=== PATIENT | male | born 1965 | race Caucasian/White ===

== ENCOUNTER 2023-08-20 18:02 | Inpatient (IN) | payer BC ==
[2023-08-20 18:48] LABS: HEMATOCRIT 50.2 % (35.4-49); HEMOGLOBIN 16.9 G/dL (11.7-16.9); MCH 30.7 pg (25.7-33.7); MCHC 33.7 g/dl (32.0-35.9); MEAN CELL VOLUME 90.9 fl (80-96); MEAN PLT VOLUME 7.5 fl (7.5-11.1); PLATELET COUNT 342.8 10^3/uL (134-434); RBC 5.52 10^6/uL (4.00-5.60); RDW 13.1 % (11.9-15.9); WHITE BLOOD COUNT 19.9 10^3/uL (4.0-10.8)
[2023-08-20 18:57] LABS: INR 1.26 (0.83-1.09); PROTHROMBIN TIME (PATIENT) 14.6 SEC (9.7-13.0)
[2023-08-20] MEDS: SODIUM CHLORIDE 0.9% 1000 ML INFUS.BAG IV ONE (19:01)
[2023-08-20] MEDS: ACETAMINOPHEN 1000 MG/100 ML BAG IVPB ONE (19:01)
[2023-08-20 19:06] LABS: ALBUMIN 4.4 g/dl (3.4-5.0); BILIRUBIN,TOTAL 0.7 mg/dl (0.2-1); CALCIUM 9.9 mg/dl (8.5-10.1); CREATININE 1.1 mg/dl (0.6-1.3); TOT PROT 7.2 g/dl (6.4-8.2)
[2023-08-20] MEDS ORDERED: PIPERACILLIN/TAZOBACTAM 4.5 GM VIAL IVPB ONE (19:15)
[2023-08-20] MEDS: PIPERACILLIN/TAZOB 4.5 GM 4.5 GM in DEXTROSE 5%-WATER 100 ML IVPB ONE (19:21)
[2023-08-20] MEDS: morphine CARPU-JECT 8 MG/1 ML DISP.SYRIN IVPUSH ONE (20:48)
[2023-08-20] MEDS ORDERED: morphine SULFATE 4 MG/ML VIAL ONE (20:49)
[2023-08-20] MEDS ORDERED: FAMOTIDINE 20 MG/50 ML IVPB 20 MG/50 ML MG IVPB ONE (22:03)
[2023-08-20] MEDS ORDERED: MAG HYDROX/AL HYDROX/SIMETH 30 ML UNIT-DOSE CUP ONE (22:03)
[2023-08-20] MEDS: MAG HYDROX/AL HYDROX/SIMETH 30 ML UNIT-DOSE CUP PO ONE (22:07)
[2023-08-20] MEDS: FAMOTIDINE 20 MG/50 ML IVPB 20 MG/50 ML MG IVPB ONE (22:07)
[2023-08-20] MEDS ORDERED: DOCUSATE SODIUM 100 MG CAPSULE (FP) PO PRN (23:42)
[2023-08-21] MEDS: morphine SULFATE 4 MG/ML VIAL IVPUSH PRN (00:58)
[2023-08-21] MEDS: DEXTROSE 5%-NORMAL SALINE 1,000 ML IV SCH (00:58)
[2023-08-21 01:21] VITALS: BMI 31.4
[2023-08-21] MEDS: PIPERACILLIN/TAZOB 3.375 GM 3.375 GM in DEXTROSE 5%-WATER - 50 ML IVPB SCH ×2 (02:23→15:26)
[2023-08-21] MEDS: ACETAMINOPHEN 1000 MG/100 ML BAG IVPB PRN (03:25)
[2023-08-21] MEDS: MELATONIN 5 MG TABLETS PO PRN (03:51)
[2023-08-21 08:10] LABS: CALCIUM 9.1 mg/dl (8.5-10.1); CREATININE 1.1 mg/dl (0.6-1.3); MAGNESIUM 2.2 mg/dL (1.8-2.4); PHOSPHOROUS 3.7 (2.5-4.9); POTASSIUM 4.3 mmol/L (3.5-5.1)
[2023-08-21 10:47] LABS: BASO % 0.2 % (0-2.0); EOS % 1.3 % (0-4.5); HEMATOCRIT 44.2 % (35.4-49); HEMOGLOBIN 14.9 GM/dL (11.7-16.9); LYMPH % 14.2 % (8-40); MCH 31.1 pg (25.7-33.7); MCHC 33.7 g/dl (32.0-35.9); MEAN CELL VOLUME 92.2 fl (80-96); MEAN PLT VOLUME 7.3 fl (7.5-11.1); MONO % 10.2 % (3.8-10.2); NEUT % 74.1 % (42.8-82.8); PLATELET COUNT 329 10^3/uL (134-434); RDW 12.8 % (11.9-15.9); WHITE BLOOD COUNT 14.9 K/mm3 (4.0-10.0)
[2023-08-21] MEDS ORDERED: ONDANSETRON 4 MG/2 ML VIAL IVPUSH PRN (13:05)
[2023-08-21] MEDS ORDERED: ACETAMINOPHEN 325 MG TABLET (FP) PO PRN ×2 (13:05→23:42)
[2023-08-21] MEDS ORDERED: FENTANYL CITRATE/PF 50 MCG/ML VIAL ONE ×3 (13:09→14:23)
[2023-08-21] MEDS ORDERED: MIDAZOLAM HCL 2 MG/2 ML SINGLE DOSE VIAL ONE (13:09)
[2023-08-21] MEDS ORDERED: PROPOFOL 20 ML ONE (13:19)
[2023-08-21] MEDS ORDERED: ACETAMINOPHEN INJECTION 100 ML IVPB ONE (14:13)
[2023-08-21] MEDS ORDERED: PIPERACILLIN/TAZOB 4.5 GM 4.5 GM in DEXTROSE 5%-WATER 100 ML IVPB SCH (20:00)
[2023-08-21] MEDS: PIPERACILLIN/TAZOB 4.5 GM 4.5 GM in DEXTROSE 5%-WATER 100 ML IVPB SCH (22:25)
[2023-08-22] MEDS ORDERED: ACETAMINOPHEN 325 MG TABLET (FP) PO PRN (01:00)
[2023-08-22] MEDS: oxyCODONE HCL 5 MG TABLET PO PRN (06:36)
[2023-08-22] MEDS ORDERED: oxyCODONE HCL 5 MG TABLET PO PRN ×2 (07:31→07:33)
[2023-08-22] MEDS ORDERED: IBUPROFEN 600 MG TABLET (FP) PO PRN (07:33)
[2023-08-22] MEDS: ACETAMINOPHEN 500 MG TABLET (FP) PO SCH (08:19)
[2023-08-22] MEDS: KETOROLAC TROMETHAMINE 30 MG/1 ML VIAL IVPUSH ONE (08:19)
[2023-08-22] MEDS: POLYETHYLENE GLYCOL (HEALTHYLAX) 3350 17 GM PACKET PO SCH (09:25)
[2023-08-22] MEDS: LACTATED RINGERS SOLUTION 1,000 ML IV SCH (09:27)
[2023-08-22 09:33] LABS: BASO % 0.2 % (0-2.0); EOS % 0.1 % (0-4.5); HEMATOCRIT 41.9 % (35.4-49); LYMPH % 13.8 % (8-40); MCH 30.6 pg (25.7-33.7); MCHC 33.4 g/dl (32.0-35.9); MEAN CELL VOLUME 91.6 fl (80-96); MEAN PLT VOLUME 7.6 fl (7.5-11.1); MONO % 6.7 % (3.8-10.2); NEUT % 79.2 % (42.8-82.8); PLATELET COUNT 356 10^3/uL (134-434); RBC 4.58 M/mm3 (4.00-5.60); RDW 12.4 % (11.9-15.9); WHITE BLOOD COUNT 16.3 K/mm3 (4.0-10.0)
[2023-08-23 07:56] LABS: HEMATOCRIT 42.6 % (35.4-49); HEMOGLOBIN 14.4 G/dL (11.7-16.9); MCH 30.8 pg (25.7-33.7); MCHC 33.8 g/dl (32.0-35.9); MEAN CELL VOLUME 91.1 fl (80-96); MEAN PLT VOLUME 7.3 fl (7.5-11.1); PLATELET COUNT 321.6 10^3/uL (134-434); RBC 4.68 10^6/uL (4.00-5.60); RDW 13.4 % (11.9-15.9); WHITE BLOOD COUNT 9.3 10^3/uL (4.0-10.8)
[2023-08-23 09:04] LABS: CALCIUM 9.1 mg/dl (8.5-10.1); CREATININE 1.1 mg/dl (0.6-1.3); POTASSIUM 4.4 mmol/L (3.5-5.1)
[2023-08-23 18:35] VITALS: BP 134/81; PULSE 80; RESP 19; TEMP 98.7
== END 2023-08-23 18:30 | disposition home or self-care (01) | DRG 349 ==
LOC: FER 18:02 → FM/S 08-21 00:04 → OBSVTOIN 08-22 11:00
PROVIDERS: ADMIT Internal Medicine; ATTEND Internal Medicine
PROC: 0D9Q0ZZ Drainage of Anus, Open Approach (ICD-10-PCS; principal; 2023-08-21 13:41)
DX: K61.0 Anal abscess (principal); B96.20 Unspecified Escherichia coli [E. coli] as the cause of diseases classified elsewhere
CPT/HCPCS: 0241U-QW; 36415; 72193-TC; 80048; 80053; 83735; 84100; 85025; 85027; 85610; 85730; 86850; 86900; 86901; 87070; 87076; 87186; 87205; 93005; 94760; 99285-25; G0378; J0131; Q9967